=== PATIENT | male | born 1960 | race Caucasian/White ===

== ENCOUNTER → 2018-12-25 | Outpatient (CLI) | payer OTHER ==
[~2018-12-25] MED LIST: BICA50TA9 PO; XTAN40CA PO
--- NOTE | 2018-12-25 16:12 | REP ---
WHOLE BODY BONE SCAN: FOLLOWING THE INTRAVENOUS ADMINISTRATION OF 21.5 millicuries technetium 99M MDP, patient's whole body was imaged in the anterior and posterior projections. Additional oblique and lateral views were obtained. There is increased uptake in the region of the left maxillary sinus which may indicate sinusitis. No suspicious foci of uptake are seen in the axillary or appendicular skeleton. There is no compelling scintigraphic evidence of osseous metastases. Renal and bladder activity are seen. IMPRESSION: No compelling scintigraphic evidence of osseous metastases. Mild focal increased uptake in the region of the left maxillary sinus may indicate sinusitis. Electronically Signed by Hima Browne MD 12/26/2018 04:47 P
== END ==
LOC: M RAD 08:58
PROVIDERS: ATTEND Urology
DX: C61 Malignant neoplasm of prostate (principal)
CPT/HCPCS: 78306; A9503

== ENCOUNTER → 2018-12-31 | Outpatient (CLI) | payer OTHER ==
--- NOTE | 2019-01-02 08:21 | RADONC ---
RADIATION ONCOLOGY CONSULTATION NOTE DATE: 12/31/2018 CHART NUMBER: [id number] DIAGNOSIS: Prostate cancer. STAGE: IIIC, T4N0M0, PSA 400, Adamaris score 10 (5-5), grade group 5. CONSULTATION NOTE: Mr. Berg is a very pleasant 58-year-old white male with the diagnosis of extremely high risk and high-grade stage IIIC, T4N0M0, poorly differentiated Adamaris score 10 (5-5) adenocarcinoma of almost all needle biopsy specimens with a PSA level originally reported to be 400, who is presenting to us today for consideration of definitive external beam radiation therapy with IMRT/IGRT. HISTORY OF PRESENT ILLNESS: The patient was in his usual state of health and I do not at this time have all the records available to me. Apparently in October a PSA was undertaken and was said to be 400. The patient was started on antibiotics on antibiotics and on 11/18/2018 the PSA dropped to 351.38. On 12/16/2018 the patient underwent TUR biopsy and cystoscopy. It was reported that he had a prostate that had multiple necrotic looking polypoid tissue areas extending into the prostate lumen. Needle biopsy undertaken on 12/16/2018 showed almost all specimens were involved with [place] score 10 (5+5) adenocarcinoma. The right apex also showed perineural invasion. Some of the specimens showed replacement of normal tissue with adenocarcinoma involving 100% of the specimen. Other biopsies involved 90% and 80%. In summary, basically it appears that almost the entire prostate was replaced with extremely highly differentiated [place] score 10 adenocarcinoma. A bone scan was undertaken on 12/25/2018 and it showed no compelling evidence for osseous metastatic disease. A CT scan done 10/15/2018 did show a markedly enlarged prostate with indentation of the bladder base. No lymphadenopathy was definitively seen. On 12/10/2018 a repeat of the PSA was done and was 377.79. The patient has started hormonal treatments and is scheduled to be seen by Dr. Ravi on January 22 for an antiandrogen injection. He has not yet had placement of any fiducial markers. He is presenting to us to discuss external beam radiation therapy with IMRT/IGRT. The patient is also scheduled to see the medical oncologist Dr. Yoly Suarez next week on January 06. PAST MEDICAL HISTORY: The patient's past medical history is positive for urinary tract infections as well as a hand laceration. ALLERGIES: No known drug allergies. SOCIAL HISTORY: The patient quit smoking cigarettes in 1991. He had smoked one pack of cigarettes per day. He smokes four marijuana joints per day every day. He does not abuse alcohol. FAMILY HISTORY: The patient's family history is positive for a father with prostate cancer. Mother with non-Hodgkin's lymphoma as well as colon cancer. A sister with breast cancer and another sister with colon and liver cancers. REVIEW OF SYSTEMS: The patient's review of systems is noncontributory. He denies nausea, vomiting, fevers, chills, night sweats, diplopia, headaches, anxiety or depression, anorexia, weight loss, visual disturbances, chest pain, urinary or bowel difficulties, bone pain or neurological problems. PHYSICAL EXAMINATION: The patient is a well-developed, well-nourished male in no acute distress. HEENT exam is normocephalic, atraumatic. Extraocular movements are intact. There is no palpable cervical, supraclavicular, infraclavicular, axillary, or inguinal lymphadenopathy present. Lungs are clear to auscultation and percussion. Heart has a regular rate and rhythm. Abdomen is benign with no hepatosplenomegaly, masses, or tenderness. Rectal examination reveals a normal anal sphincter tone. His prostate is quite enlarged bilaterally and irregularly shaped. Skeletal examination reveals no tenderness to pressure or percussion of the bony skeleton. Extremities reveal no clubbing, cyanosis, or edema. Neurologic exam is grossly intact as is the remainder of the physical examination. MEDICAL NECESSITY: IMRT/IGRT is clinically indicated for the highly conformal dose planning required. The target volume is in close proximity to critical structures, such as the rectum, bladder, small bowel, and femoral heads. The volume of interest must be covered with narrow margins to adequately protect immediately adjacent structures. The plan requires interpretation of complex testing such as CT localization. As noted above, special planning (IMRT) and localizing (IGRT) is required and essential to maximally protect sensitive normal tissue structures which cannot be accomplished using conventional 3-dimensional planning. ASSESSMENT: I believe this patient is a candidate for external beam radiation therapy and I have so informed him. I have discussed with the patient in detail the potential benefits as well as possible acute and chronic sequelae of external beam radiation therapy. We discussed the logistics of treatment planning, simulation and subsequent fractionated daily radiation treatments. Clearly I believe this case is for local control. We are dealing with massive and extremely aggressive disease. Indeed almost all cores of his biopsy specimen were replaced with a [place] score 10 (5-5) adenocarcinoma. In addition, there was perineural invasion and according to Dr. Davidson Ravi's note there was no clear capsule, the tumor had to be scraped off the bladder. In addition, his PSA score is at 400 and has increased from the low after the antibiotics of 351 up to 377 in just a matter of 2 weeks. All of this indicates to me the high likelihood of metastatic disease. Even in light of this however, I believe it worth treating to obtain local control of what appears to be significant advanced disease. I have discussed the case with Dr. Ravi's office for placement of fiducial markers. Once the fiducial markers are placed we can schedule him for simulation and initiation of treatment planning for 2 weeks later. In the meantime, androgen deprivation therapy is underway and this will hopefully shrink down some of the size of our targeted prostate gland. I have also placed this patient on our list for discussion at our multidisciplinary tumor conference. The patient is scheduled to see medical oncology next week to see if they can benefit him in any way at this time. I look forward to their expert opinions and advice. This patient's tumors is quite undifferentiated and therefore I do not have a tremendous amount of navid in the efficacy in the success of androgen deprivation therapy. Thank you for allowing us to participate in the care of this very pleasant gentleman. If I could be of any further assistance please feel free to contact me at anytime. cc: MD Davidson Martinez, ROBLES
== END ==
LOC: M ONCR 12:47
PROVIDERS: ATTEND Radiology Radiation Oncology
DX: C61 Malignant neoplasm of prostate (principal)

== ENCOUNTER → 2019-01-20 | Outpatient (REF) | payer OTHER ==
[2019-01-20 12:33] LABS: BASO # 0.1 10^3/uL (0.0-0.2); BASO % 0.7 % (0.0-1.0); EOS # 0.3 10^3/uL (0.0-0.5); EOS % 4.3 % (0.0-3.0); HEMATOCRIT 45.4 % (42.0-52.0); HEMOGLOBIN 15.4 g/dl (13.5-17.5); LYMPH % 29.1 % (24.0-44.0); MEAN CORPUSCULAR HEMOGLOBIN 32.3 pg (27.0-33.0); MEAN CORPUSCULAR HGB CONC 33.9 g/dl (32.0-36.5); MEAN CORPUSCULAR VOLUME 95.2 fl (80.0-96.0); MONO # 0.5 10^3/uL (0.0-0.8); MONO % 6.9 % (0.0-5.0); NEUTROPHILS # 4.1 10^3/uL (1.5-8.5); NEUTROPHILS % 58.1 % (36.0-66.0); PLATELET COUNT, AUTOMATED 324 10^3/uL (150-450); RED BLOOD COUNT 4.77 10^6/uL (4.30-6.10)
[2019-01-20 13:08] LABS: ALT/SGPT 48 U/L (12-78); BILIRUBIN,TOTAL 0.6 MG/DL (0.2-1.0); BLOOD UREA NITROGEN 20 MG/DL (7-18); CALCIUM LEVEL 9.2 MG/DL (8.5-10.1); CARBON DIOXIDE LEVEL 26 MEQ/L (21-32); CHLORIDE LEVEL 106 MEQ/L (98-107); GLOMERULAR FILTRATION RATE > 60.0 (>56); GLUCOSE, FASTING 114 MG/DL (70-100); POTASSIUM SERUM 4.3 MEQ/L (3.5-5.1); SODIUM LEVEL 138 MEQ/L (136-145); TOTAL PROTEIN 7.3 GM/DL (6.4-8.2)
== END ==
LOC: M LABDRAWC 11:45
PROVIDERS: ATTEND Nurse Practitioner Family
DX: C61 Malignant neoplasm of prostate (principal)

== ENCOUNTER → 2019-02-05 | Outpatient (REF) | payer OTHER ==
[2019-02-05 11:37] LABS: BASO % 0.6 % (0.0-1.0); EOS # 0.3 10^3/uL (0.0-0.5); EOS % 4.6 % (0.0-3.0); HEMATOCRIT 42.7 % (42.0-52.0); HEMOGLOBIN 14.2 g/dl (13.5-17.5); LYMPH # 2.5 10^3/uL (1.5-5.0); MEAN CORPUSCULAR HEMOGLOBIN 31.1 pg (27.0-33.0); MEAN CORPUSCULAR HGB CONC 33.3 g/dl (32.0-36.5); MEAN CORPUSCULAR VOLUME 93.6 fl (80.0-96.0); MONO # 0.6 10^3/uL (0.0-0.8); MONO % 8.4 % (0.0-5.0); NEUTROPHILS # 3.3 10^3/uL (1.5-8.5); PLATELET COUNT, AUTOMATED 352 10^3/uL (150-450); RED BLOOD COUNT 4.56 10^6/uL (4.30-6.10); WHITE BLOOD COUNT 6.7 10^3/uL (4.0-10.0)
[2019-02-05 11:45] LABS: ALT/SGPT 29 U/L (12-78); BILIRUBIN,TOTAL 0.6 MG/DL (0.2-1.0); BLOOD UREA NITROGEN 21 MG/DL (7-18); CALCIUM LEVEL 9.3 MG/DL (8.5-10.1); CARBON DIOXIDE LEVEL 27 MEQ/L (21-32); CHLORIDE LEVEL 106 MEQ/L (98-107); CREATININE FOR GFR 0.97 MG/DL (0.70-1.30); GLOMERULAR FILTRATION RATE > 60.0 (>56); GLUCOSE, FASTING 109 MG/DL (70-100); POTASSIUM SERUM 4.2 MEQ/L (3.5-5.1); SODIUM LEVEL 139 MEQ/L (136-145); TOTAL PROTEIN 7.2 GM/DL (6.4-8.2)
== END ==
LOC: M LABDRWAD 11:23
PROVIDERS: ATTEND Nurse Practitioner Family
DX: C61 Malignant neoplasm of prostate (principal)

== ENCOUNTER 2019-03-05 12:44 | Outpatient (RCR) | payer OTHER ==
[2019-02-18 14:53] LABS: BASO % 0.5 % (0.0-1.0); EOS # 0.1 10^3/uL (0.0-0.5); HEMATOCRIT 41.5 % (42.0-52.0); HEMOGLOBIN 14.1 g/dl (13.5-17.5); LYMPH # 2.4 10^3/uL (1.5-5.0); LYMPH % 30.4 % (24.0-44.0); MEAN CORPUSCULAR HEMOGLOBIN 31.8 pg (27.0-33.0); MEAN CORPUSCULAR VOLUME 93.7 fl (80.0-96.0); MONO # 0.8 10^3/uL (0.0-0.8); MONO % 9.7 % (0.0-5.0); NEUTROPHILS # 4.5 10^3/uL (1.5-8.5); NEUTROPHILS % 57.8 % (36.0-66.0); PLATELET COUNT, AUTOMATED 349 10^3/uL (150-450); RED BLOOD COUNT 4.43 10^6/uL (4.30-6.10); WHITE BLOOD COUNT 7.7 10^3/uL (4.0-10.0)
--- NOTE | 2019-02-18 15:13 | RADONC ---
RADIATION ONCOLOGY SIMULATION NOTE DATE OF SERVICE: 02/18/2019 CHART NUMBER: [id number] Mr. Berg was taken to the CT scan for CT simulation of his prostate field. CT was accomplished without difficulty or discomfort. Radiation treatment planning is underway and radiation treatments will begin subsequently. An immobilization device was created and will be used throughout the course of treatment. It was created without difficulty or discomfort. I was physically present throughout the course of CT simulation.
--- NOTE | 2019-03-05 08:38 | RADONC ---
RADIATION ONCOLOGY PROGRESS NOTE DATE: 03/04/2019 CHART NUMBER: [id number] PROGRESS NOTE: Mr. Berg is presently at a dose of 540 cGy to his prostate is tolerating treatments quite well at this point with no complaints related to his radiation therapy. He is having no urinary or bowel difficulties and no bone pain. REVIEW OF SYSTEMS: The patient's review of systems is noncontributory. Denies nausea, vomiting, fevers, chills, night sweats, diplopia, headaches, anxiety or depression, anorexia, weight loss, visual disturbances, chest pain, urinary or bowel difficulties, bone pain, or neurological problems. PHYSICAL EXAMINATION: The patient's skin is in good condition with no evidence of radiation change present. There is no moist or dry desquamation. The remainder of the physical exam remains unchanged. Mr. Berg is tolerating treatments quite well and radiation will continue as scheduled.
== END 2019-03-08 ==
LOC: M ONCR 12:44
PROVIDERS: ATTEND Radiology Radiation Oncology
DX: C61 Malignant neoplasm of prostate (principal)

== ENCOUNTER → 2019-03-24 | Outpatient (REF) | payer OTHER ==
[2019-03-24 11:38] LABS: ALT/SGPT 32 U/L (12-78); BILIRUBIN,TOTAL 0.4 MG/DL (0.2-1.0); BLOOD UREA NITROGEN 18 MG/DL (7-18); CALCIUM LEVEL 9.3 MG/DL (8.5-10.1); CARBON DIOXIDE LEVEL 28 MEQ/L (21-32); CHLORIDE LEVEL 108 MEQ/L (98-107); CHOLESTEROL LEVEL 348 MG/DL (<200); CHOLESTEROL RISK RATIO 6.214 (<5); CREATININE FOR GFR 0.96 MG/DL (0.70-1.30); GLOMERULAR FILTRATION RATE > 60.0 (>56); GLUCOSE, FASTING 98 MG/DL (70-100); HDL CHOLESTEROL 56 MG/DL (>40); LDL CHOLESTEROL 249 MG/DL (<100); NON-HDL-C 292 MG/DL; POTASSIUM SERUM 5.7 MEQ/L (3.5-5.1); SODIUM LEVEL 141 MEQ/L (136-145); TOTAL PROTEIN 7.4 GM/DL (6.4-8.2); TRIGLYCERIDES LEVEL 217 MG/DL (<150)
== END ==
LOC: M SFHCCLAY 06:49
PROVIDERS: ATTEND Family Medicine
DX: Z13.220 Encounter for screening for lipoid disorders (principal); Z13.1 Encounter for screening for diabetes mellitus

== ENCOUNTER → 2019-04-08 | Outpatient (RCR) | payer OTHER ==
--- NOTE | 2019-03-11 15:22 | RADONC ---
RADIATION ONCOLOGY TREATMENT NOTE: DATE OF SERVICE: 03/11/2019 CHART NUMBER: [id number] Mr. Berg is a patient with prostate CA. He is getting treatment ADT and radiatio therapy. His next shot is scheduled in May of 2019. So far he has received a dose of 1260 cGy in 7 treatments. He has no complaints. No , GI problems. He is experiencing hot flashes with ADT. He is tolerating treatments very well without the unusual side effect and the treatment will continue as planned. MTDD
--- NOTE | 2019-03-17 13:16 | RADONC ---
RADIATION ONCOLOGY PROGRESS NOTE DATE: 03/17/2019 CHART NUMBER: [id number] Mr. Berg is presently a dose of 1980 cGy to his prostate and is tolerating treatments quite well at this point with no complaints related to his radiation therapy. He is having no urinary or bowel difficulties and no bone pain. The patient's review of systems is noncontributory. Denies nausea, vomiting, fevers, chills, night sweats, diplopia, headaches, anxiety or depression, anorexia, weight loss, visual disturbances, chest pain, urinary or bowel difficulties, bone pain, or neurological problems. PHYSICAL EXAMINATION: The patient's skin is in good condition with no evidence of radiation change present. There is no moist or dry desquamation. The remainder of his physical exam remains unchanged. Mr. Berg is tolerating treatments quite well and radiation will continue as scheduled.
--- NOTE | 2019-03-26 06:32 | RADONC ---
RADIATION ONCOLOGY PROGRESS NOTE DATE: 03/24/2019 CHART #: [id number] Mr. Berg is presently at a dose of 2880 cGy to his prostate and seminal vesicles and is tolerating treatments quite well at this point with no significant difficulties related to his radiation therapy. He is having no urinary or bowel problems and no bone pain. REVIEW OF SYSTEMS: The patient's review of systems is noncontributory. Denies nausea, vomiting, fevers, chills, night sweats, diplopia, headaches, anxiety or depression, anorexia, weight loss, visual disturbances, chest pain, urinary or bowel difficulties, bone pain, or neurological problems. PHYSICAL EXAMINATION: The patient's skin is in good condition with no evidence of moist or dry desquamation. The remainder of his physical exam remains unchanged. The patient is tolerating treatments quite well and radiation will continue as scheduled.
--- NOTE | 2019-04-04 08:47 | RADONC ---
RADIATION ONCOLOGY PROGRESS NOTE DATE: 03/31/2019 CHART #: [id number] Mr. Berg with a diagnosis of adenocarcinoma of the prostate, stage III C, T4, N0, M0, with a PSA greater than 20 and high-grade tumor. He is currently receiving local regional radiotherapy. His tolerance thus far is satisfactory. He is at a dose of 3780 cGy of a proposed 7920 cGy. He is tolerating his radiotherapy reasonably well, denying any nausea, vomiting, diarrhea, dysuria, hematuria or blood per rectum. His energy level is excellent and he is able to maintain most of his day-to-day activities without any alteration of his lifestyle. Skin irritation is denied. EXAMINATION FINDINGS: The skin within the irradiated volume shows neither erythema nor desquamation. Lymphatics: No palpable peripheral lymphadenopathy is appreciated. The remainder of the physical examination is unchanged. IMPRESSION: Tolerating therapy well. PLAN: Treatments to continue. MTDD
--- NOTE | 2019-04-07 13:24 | RADONC ---
RADIATION ONCOLOGY PROGRESS NOTE DATE: 04/07/2019 CLINICAL HISTORY [id number] Mr. Berg with a diagnosis of malignant neoplasm involving the prostate stage IIIC, T4N0M0, is currently receiving local regional radiotherapy. He is having no issues secondary to the radiotherapy, in fact he denies any nausea, vomiting, significant diarrhea, dysuria, hematuria or blood per rectum. He has achieved a dose of 4320 cGy of a proposed 4500 cGy and thereafter will be boosted for an additional dose. As stated he specifically denies any nausea, vomiting, diarrhea, dysuria, hematuria or blood per rectum. His energy level is excellent and he is able to maintain most day-to-day activities without any alteration of his lifestyle. Skin irritation is denied. EXAMINATION FINDINGS: The skin within the irradiated volume shows neither erythema nor desquamation. There is no palpable peripheral lymphadenopathy noted in the cervical, supraclavicular, axillary or inguinal lymph node chains. The remainder of the physical examination is unchanged. IMPRESSION: Tolerating therapy well. PLAN: Treatments to continue.
== END ==
LOC: M ONCR 03-10 12:37
PROVIDERS: ATTEND Radiology Radiation Oncology
DX: C61 Malignant neoplasm of prostate (principal)

== ENCOUNTER 2019-05-06 09:35 | Outpatient (RCR) | payer OTHER ==
--- NOTE | 2019-04-15 06:49 | RADONC ---
RADIATION ONCOLOGY PROGRESS NOTE DATE: 04/14/2019 CHART NUMBER: [id number] Mr. Berg is presently at a dose of 5040 cGy to his prostate and seminal vesicles and is tolerating treatments quite well at this point with no complaints related to his radiation therapy. He is having no urinary or bowel difficulties and no bone pain. REVIEW OF SYSTEMS: The patient's review of systems is noncontributory. He denies nausea, vomiting, fevers, chills, night sweats, diplopia, headaches, anxiety or depression, anorexia, weight loss, visual disturbances, chest pain, urinary or bowel difficulties, bone pain or neurological problems. PHYSICAL EXAMINATION The patient's skin is in good condition with no evidence of moist or dry desquamation. The remainder of his physical exam remains unchanged. Mr. Berg is tolerating treatments quite well and radiation will continue as scheduled.
--- NOTE | 2019-04-22 08:38 | RADONC ---
RADIATION ONCOLOGY PROGRESS NOTE DATE: 04/21/2019 CHART #: [id number] Mr. Berg at is presently at a dose of 5940 cGy to his prostate and is tolerating treatments quite well at this point with no complaints related to his radiation therapy. He is having no significant urinary or bowel difficulties and no bone pain. REVIEW OF SYSTEMS: The patient's review of systems is noncontributory. Denies nausea, vomiting, fevers, chills, night sweats, diplopia, headaches, anxiety or depression, anorexia, weight loss, visual disturbances, chest pain, urinary or bowel difficulties, bone pain, or neurological problems. PHYSICAL EXAMINATION: The patient's skin is in good condition with no evidence of moist or dry desquamation. The remainder of his physical exam remains unchanged. Mr. Berg is tolerating treatments quite well and radiation will continue as scheduled.
--- NOTE | 2019-04-28 11:43 | RADONC ---
RADIATION ONCOLOGY PROGRESS NOTE DATE: 04/28/2019 CHART NUMBER: [id number] Mr. Berg is presently at a dose of 6840 cGy to his prostate and is tolerating treatments quite well at this point with no significant difficulties related to his radiation therapy other than urinary frequency and some burning. The patient's review of systems is positive for urinary frequency but is otherwise noncontributory. He denies nausea, vomiting, fevers, chills, night sweats, diplopia, headaches, anxiety or depression, anorexia, weight loss, visual disturbances, chest pain, urinary or bowel difficulties, bone pain, or neurological problems. PHYSICAL EXAM: The patient's skin is in good condition with no evidence of radiation change present. There is no moist or dry desquamation. The remainder of his physical exam remains unchanged. Mr. Berg is tolerating treatments quite well and radiation will continue as scheduled.
--- NOTE | 2019-05-06 15:26 | RADONC ---
RADIATION ONCOLOGY PROGRESS NOTE DATE OF SERVICE: 05/05/2019 CHART NUMBER: [id number] Mr. Hernandez is presently at a dose of 7740 cGy to his prostate and is tolerating treatments quite well at this point with no complaints related to his radiation therapy. He is having no urinary or bowel difficulties and no bone pain. The patient's review of systems is noncontributory. Denies nausea, vomiting, fevers, chills, night sweats, diplopia, headaches, anxiety or depression, anorexia, weight loss, visual disturbances, chest pain, urinary or bowel difficulties, bone pain, or neurological problems. PHYSICAL EXAMINATION The patient's skin is in good condition with no evidence of moist or dry desquamation. The remainder of his physical exam remains unchanged. Mr. Hernandez is tolerating treatments quite well and radiation will continue as scheduled.
--- NOTE | 2019-05-07 11:17 | RADONC ---
RADIATION ONCOLOGY CONSULTATION NOTE DATE: 05/06/2019 CHART NUMBER: [id number] DIAGNOSIS: Prostate cancer. STAGE: III C, T4N0M0, PSA 400, Adamaris score 10 (5-5), grade group 5. CONSULTATION NOTE: Mr. Berg is a very pleasant 58-year-old white male with the diagnosis of extremely high risk and high-grade stage III C, T4N0M0, poorly differentiated [place] score 10 (5-5) adenocarcinoma of the prostate with almost all needle biopsy specimens positive with an original PSA level reported to be 400 who presented to us for consideration of definitive external beam radiation therapy with IMRT/IGRT. We treated the patient to his prostate for a total dose of 7920 cGy delivered in 44 fractions of 180 cGy each over 65 elapsed days from 02/27/2019 through 05/06/2019. The patient's prostate was treated on a linear accelerator utilizing a 6 MV photon beam via IMRT/IGRT. We initially treated the prostate, seminal vesicles and first echelon of lymph nodes to a total dose of 4500 cGy delivered in 25 fractions of 180 cGy each. We subsequently coned down to the prostate and seminal vesicles for an additional 900 cGy in 5 fractions of 180 cGy bringing the seminal vesicles to a total dose of 5400 cGy. We then boosted the prostate for an additional 2520 cGy in 14 fractions of 180 cGy bringing it to a total dose once again in 7920 cGy. Mr. Berg tolerated his treatments quite well and was able complete therapy as prescribed without interruption. I have scheduled the patient to see me again in 1 month for further followup. He will also continue to be followed by his other physicians as well. cc: MD Davidson Martinez, ROBLES
== END 2019-05-09 ==
LOC: M ONCR 09:35
PROVIDERS: ATTEND Radiology Radiation Oncology
DX: C61 Malignant neoplasm of prostate (principal)

== ENCOUNTER → 2019-06-02 | Outpatient (REF) | payer OTHER | LOC: M LABDRAWC 11:12 → M LAB REF 11:12 | PROVIDERS: ATTEND Radiology Radiation Oncology | DX: C61 Malignant neoplasm of prostate (principal) ==

== ENCOUNTER → 2019-06-04 | Outpatient (CLI) | payer OTHER ==
--- NOTE | 2019-06-05 10:35 | RADONC ---
RADIATION ONCOLOGY FOLLOWUP NOTE DATE: 06/04/2019 CHART #: [id number] DIAGNOSIS: Prostate cancer. STAGE: III C, T4N0M0, PSA 400, [place] score 10 (5-5) grade group 5. ECOG PERFORMANCE STATUS: 0. FOLLOWUP NOTE: Mr. Berg is a very pleasant 58-year-old white male with the diagnosis of extremely high risk and high-grade stage III C, T4N0M0, poorly differentiated [place] score 10 (5-5) adenocarcinoma of almost all needle biopsy specimens with a PSA level originally reported to be 400, who is presenting to us today for routine followup visit 1 month post completion of external beam radiation therapy. The patient presents today reporting that he is doing quite well with no complaints at this time related to his radiation therapy or disease. He is having no urinary or bowel difficulties and no bone pain. REVIEW OF SYSTEMS: The patient's review of systems is noncontributory. Denies nausea, vomiting, fevers, chills, night sweats, diplopia, headaches, anxiety or depression, anorexia, weight loss, visual disturbances, chest pain, urinary or bowel difficulties, bone pain, or neurological problems. PHYSICAL EXAMINATION: The patient is a well-developed, well-nourished male in no acute distress. HEENT exam is normocephalic, atraumatic. Extraocular movements are intact. There is no palpable cervical, supraclavicular, infraclavicular, axillary, or inguinal lymphadenopathy present. Lungs are clear to auscultation and percussion. Heart has a regular rate and rhythm. Abdomen is benign with no hepatosplenomegaly, masses, or tenderness. Rectal examination reveals a normal anal sphincter tone. His prostate is smooth with no evidence of nodularity. Skeletal examination reveals no tenderness to pressure or percussion of the bony skeleton. Extremities reveal no clubbing, cyanosis, or edema. Neurologic exam is grossly intact, as is the remainder of the physical examination. ASSESSMENT: The patient is clinically doing well at this point. He is seeing Dr. Ravi his urologist routinely for hormonal treatments and PSA studies. He is also continuing to be followed by his other physicians. In light of this and my impending senior care, I am discharging this patient from my followup at this point understanding that he is in good care with his urologist managing this issue. cc: MD Davidson Martinez, ROBLES
== END ==
LOC: M ONCR 09:22
PROVIDERS: ATTEND Radiology Radiation Oncology
DX: C61 Malignant neoplasm of prostate (principal)

== ENCOUNTER → 2019-07-02 | Outpatient (REF) | payer OTHER | LOC: M LABDRAWC 15:58 | PROVIDERS: ATTEND Urology | DX: C61 Malignant neoplasm of prostate (principal) ==

== ENCOUNTER → 2020-01-06 | Outpatient (REF) | payer OTHER ==
[2020-01-06 19:00] LABS: HEMOGLOBIN A1c 5.4 %
[2020-01-06 19:15] LABS: BLOOD UREA NITROGEN 13 MG/DL (7-18); CALCIUM LEVEL 9.3 MG/DL (8.8-10.2); CARBON DIOXIDE LEVEL 27 MEQ/L (21-32); CHLORIDE LEVEL 106 MEQ/L (98-107); CHOLESTEROL LEVEL 218 MG/DL (<200); CHOLESTEROL RISK RATIO 4.739 (<5); CREATININE FOR GFR 0.85 MG/DL (0.70-1.30); GLOMERULAR FILTRATION RATE > 60.0 (>49); GLUCOSE, FASTING 93 MG/DL (70-100); HDL CHOLESTEROL 46 MG/DL (>40); LDL CHOLESTEROL 133 MG/DL (<100); NON-HDL-C 172 MG/DL; POTASSIUM SERUM 4.3 MEQ/L (3.5-5.1); SODIUM LEVEL 139 MEQ/L (136-145); TRIGLYCERIDES LEVEL 194 MG/DL (<150)
== END ==
LOC: M SFHCCLAY 16:09
PROVIDERS: ATTEND Family Medicine
DX: I11.9 Hypertensive heart disease without heart failure (principal); Z13.1 Encounter for screening for diabetes mellitus; E78.49 Other hyperlipidemia

== ENCOUNTER → 2020-01-06 | Outpatient (REF) | payer OTHER | LOC: M LABDRAWC 16:08 | PROVIDERS: ATTEND Urology | DX: Z12.5 Encounter for screening for malignant neoplasm of prostate (principal) ==

== ENCOUNTER → 2020-07-07 | Outpatient (REF) | payer OTHER ==
[2020-07-07 12:02] LABS: CARBON DIOXIDE LEVEL 27 MEQ/L (21-32); CHLORIDE LEVEL 105 MEQ/L (98-107); GLOMERULAR FILTRATION RATE > 60.0 (>49); POTASSIUM SERUM 4.5 MEQ/L (3.5-5.1); PROSTATIC SPECIFIC AG MONITOR < 0.01 NG/ML (< 4.00); SODIUM LEVEL 138 MEQ/L (136-145)
== END ==
LOC: M LABDRAWC 10:59
PROVIDERS: ATTEND Urology
DX: R31.9 Hematuria, unspecified (principal); C61 Malignant neoplasm of prostate; R39.12 Poor urinary stream; R33.9 Retention of urine, unspecified

== ENCOUNTER → 2020-10-05 | Outpatient (REF) | payer OTHER | LOC: M SFHCCLAY 11:15 | PROVIDERS: ATTEND Family Medicine | DX: S30.861A Insect bite (nonvenomous) of abdominal wall, initial encounter (principal); W57.XXXA Bitten or stung by nonvenomous insect and other nonvenomous arthropods, initial encounter; M79.10 Myalgia, unspecified site ==

== ENCOUNTER → 2021-02-23 | Outpatient (REF) | payer OTHER | LOC: M LABDRAWC 15:44 | PROVIDERS: ATTEND Urology | DX: C61 Malignant neoplasm of prostate (principal) ==

== ENCOUNTER → 2021-03-01 | Outpatient (REF) | payer OTHER ==
[2021-03-01 11:56] LABS: BLOOD UREA NITROGEN 21 MG/DL (7-18); CALCIUM LEVEL 9.8 MG/DL (8.8-10.2); CARBON DIOXIDE LEVEL 28 MEQ/L (21-32); CHLORIDE LEVEL 107 MEQ/L (98-107); CHOLESTEROL LEVEL 280 MG/DL (<200); CREATININE FOR GFR 0.95 MG/DL (0.70-1.30); GLOMERULAR FILTRATION RATE > 60.0 (>49); GLUCOSE, FASTING 103 MG/DL (70-100); HDL CHOLESTEROL 50 MG/DL (>40); LDL CHOLESTEROL 207 MG/DL (<100); NON-HDL-C 230 MG/DL; SODIUM LEVEL 139 MEQ/L (136-145); TRIGLYCERIDES LEVEL 116 MG/DL (<150)
== END ==
LOC: M SFHCCLAY 07:04
PROVIDERS: ATTEND Family Medicine
DX: Z00.00 Encounter for general adult medical examination without abnormal findings (principal); E78.00 Pure hypercholesterolemia, unspecified; I11.9 Hypertensive heart disease without heart failure

== ENCOUNTER → 2021-08-31 | Outpatient (REF) | payer OTHER | LOC: M LABDRAWC 11:03 | PROVIDERS: ATTEND Urology | DX: C61 Malignant neoplasm of prostate (principal) ==

== ENCOUNTER → 2021-08-31 | Outpatient (REF) | payer OTHER ==
[2021-08-31 12:07] LABS: BLOOD UREA NITROGEN 19 MG/DL (7-18); CALCIUM LEVEL 9.8 MG/DL (8.8-10.2); CARBON DIOXIDE LEVEL 27 MEQ/L (21-32); CHLORIDE LEVEL 108 MEQ/L (98-107); CHOLESTEROL LEVEL 303 MG/DL (<200); CHOLESTEROL RISK RATIO 7.046 (<5); CREATININE FOR GFR 0.94 MG/DL (0.70-1.30); GLOMERULAR FILTRATION RATE > 60.0 (>49); GLUCOSE, FASTING 110 MG/DL (70-100); HDL CHOLESTEROL 43 MG/DL (>40); LDL CHOLESTEROL 232 MG/DL (<100); NON-HDL-C 260 MG/DL; POTASSIUM SERUM 4.9 MEQ/L (3.5-5.1); SODIUM LEVEL 141 MEQ/L (136-145); TRIGLYCERIDES LEVEL 142 MG/DL (<150)
== END ==
LOC: M SFHCCLAY 07:14
PROVIDERS: ATTEND Family Medicine
DX: E78.00 Pure hypercholesterolemia, unspecified (principal); I11.9 Hypertensive heart disease without heart failure

== ENCOUNTER → 2022-02-23 | Outpatient (CLI) | payer OTHER | LOC: M WHC 11:21 | PROVIDERS: ATTEND Urology | DX: M81.8 Other osteoporosis without current pathological fracture (principal) ==

== ENCOUNTER → 2022-03-13 | Outpatient (REF) | payer OTHER | LOC: M LABDRAWC 11:17 | PROVIDERS: ATTEND Urology | DX: C61 Malignant neoplasm of prostate (principal) ==

== ENCOUNTER → 2022-07-13 | Outpatient (REF) | payer OTHER ==
[2022-07-13 18:24] LABS: HEMOGLOBIN A1c 5.5 % (4.0-6.0)
[2022-07-13 18:53] LABS: ALBUMIN 3.7 G/DL (3.2-5.2); ALKALINE PHOSPHATASE 80 U/L (46-116); ALT/SGPT 20 U/L (7.0-40); AST/SGOT 25 U/L (<34); BILIRUBIN,TOTAL 0.4 MG/DL (0.3-1.2); BLOOD UREA NITROGEN 13 MG/DL (9-23); CARBON DIOXIDE LEVEL 27 MMOL/L (20-31); CHLORIDE LEVEL 105 MMOL/L (98-107); CHOLESTEROL LEVEL 226 MG/DL (<200); CREATININE FOR GFR 0.83 MG/DL (0.70-1.30); GLOMERULAR FILTRATION RATE > 60.0 (>49); GLUCOSE, FASTING 97 MG/DL (74-106); HDL CHOLESTEROL 49.1 MG/DL (>40); LDL CHOLESTEROL 149.9 MG/DL (<100); NON-HDL-C 176.9 MG/DL; POTASSIUM SERUM 5.1 MMOL/L (3.5-5.1); SODIUM LEVEL 138 MMOL/L (136-145); TOTAL PROTEIN 6.7 G/DL (5.7-8.2); TRIGLYCERIDES LEVEL 135 MG/DL (<150)
== END ==
LOC: M SFHCCLAY 10:12
PROVIDERS: ATTEND Nurse Practitioner Family
DX: E78.00 Pure hypercholesterolemia, unspecified (principal); I10 Essential (primary) hypertension; R73.09 Other abnormal glucose

== ENCOUNTER → 2022-07-27 | Outpatient (REF) | payer OTHER ==
[2022-07-27 17:46] LABS: BLOOD UREA NITROGEN 18 MG/DL (9-23); CALCIUM LEVEL 9.7 MG/DL (8.3-10.6); CARBON DIOXIDE LEVEL 28 MMOL/L (20-31); CHLORIDE LEVEL 100 MMOL/L (98-107); CREATININE FOR GFR 0.85 MG/DL (0.70-1.30); GLOMERULAR FILTRATION RATE > 60.0 (>49); GLUCOSE, FASTING 94 MG/DL (74-106); POTASSIUM SERUM 4.2 MMOL/L (3.5-5.1); SODIUM LEVEL 137 MMOL/L (136-145)
== END ==
LOC: M SFHCCLAY 11:21
PROVIDERS: ATTEND Nurse Practitioner Family
DX: I10 Essential (primary) hypertension (principal)

== ENCOUNTER → 2022-10-25 | Outpatient (REF) | payer OTHER ==
[2022-10-25 17:55] LABS: BLOOD UREA NITROGEN 17 MG/DL (9-23); CALCIUM LEVEL 9.4 MG/DL (8.3-10.6); CARBON DIOXIDE LEVEL 27 MMOL/L (20-31); CHLORIDE LEVEL 102 MMOL/L (98-107); CREATININE FOR GFR 0.78 MG/DL (0.70-1.30); GLOMERULAR FILTRATION RATE > 60.0 (>49); GLUCOSE, FASTING 98 MG/DL (74-106); POTASSIUM SERUM 4.1 MMOL/L (3.5-5.1); SODIUM LEVEL 137 MMOL/L (136-145)
== END ==
LOC: M SFHCCLAY 09:41
PROVIDERS: ATTEND Nurse Practitioner Family
DX: I10 Essential (primary) hypertension (principal)

== ENCOUNTER → 2022-10-25 | Outpatient (REF) | payer OTHER ==
[2022-10-25 18:41] LABS: PROSTATIC SPECIFIC AG MONITOR 0.04 NG/ML (< 4.00)
== END ==
LOC: M LABDRAWC 17:39
PROVIDERS: ATTEND Urology
DX: C61 Malignant neoplasm of prostate (principal)

== ENCOUNTER → 2023-01-16 | Outpatient (CLI) | payer OTHER ==
[~2023-01-16] MED LIST changes: +ISOVUE-370 76% 100ML VIAL As Ordered ONE
== END ==
LOC: M RAD 10:03
PROVIDERS: ATTEND Urology
DX: C61 Malignant neoplasm of prostate (principal)
CPT/HCPCS: 74176; 78306; A9503; Q9967

== ENCOUNTER → 2023-02-09 | Outpatient (REF) | payer OTHER ==
[~2023-02-09] MED LIST changes: -ISOVUE-370 76% 100ML VIAL As Ordered ONE
== END ==
LOC: M LABDRAWC 11:19
PROVIDERS: ATTEND Urology
DX: C61 Malignant neoplasm of prostate (principal)

== ENCOUNTER → 2023-05-15 | Outpatient (REF) | payer OTHER ==
[2023-05-15 14:33] LABS: PROSTATIC SPECIFIC AG MONITOR 0.04 NG/ML (< 4.00)
== END ==
LOC: M LABDRAWC 13:14
PROVIDERS: ATTEND Urology
DX: C61 Malignant neoplasm of prostate (principal)

== ENCOUNTER → 2023-06-13 | Outpatient (REF) | payer OTHER ==
[2023-06-13 12:57] LABS: HEMOGLOBIN A1c 5.6 % (4.0-6.0)
[2023-06-13 13:00] LABS: ALBUMIN 4.3 G/DL (3.2-5.2); ALKALINE PHOSPHATASE 74 U/L (46-116); ALT/SGPT 31 U/L (7.0-40); AST/SGOT 31 U/L (<34); BILIRUBIN,TOTAL 0.5 MG/DL (0.3-1.2); BLOOD UREA NITROGEN 16 MG/DL (9-23); CALCIUM LEVEL 9.1 MG/DL (8.3-10.6); CARBON DIOXIDE LEVEL 26 MMOL/L (20-31); CHLORIDE LEVEL 107 MMOL/L (98-107); CHOLESTEROL LEVEL 276 MG/DL (<200); CHOLESTEROL RISK RATIO 6.06 (<5); CREATININE FOR GFR 0.81 MG/DL (0.70-1.30); GLOMERULAR FILTRATION RATE > 60.0 (>49); GLUCOSE, FASTING 95 MG/DL (74-106); HDL CHOLESTEROL 45.5 MG/DL (>40); LDL CHOLESTEROL 204.9 MG/DL (<100); NON-HDL-C 230.5 MG/DL; POTASSIUM SERUM 4.3 MMOL/L (3.5-5.1); SODIUM LEVEL 138 MMOL/L (136-145); TOTAL PROTEIN 7.1 G/DL (5.7-8.2); TRIGLYCERIDES LEVEL 128 MG/DL (<150)
== END ==
LOC: M SFHCCLAY 08:45
PROVIDERS: ATTEND Nurse Practitioner Family
DX: E78.00 Pure hypercholesterolemia, unspecified (principal); K21.9 Gastro-esophageal reflux disease without esophagitis; I10 Essential (primary) hypertension; R73.09 Other abnormal glucose; Z85.46 Personal history of malignant neoplasm of prostate

== ENCOUNTER → 2023-11-01 | Outpatient (REF) | payer OTHER ==
[~2023-11-01] MED LIST changes: +BICA50TA4 PO; -BICA50TA9 PO
[2023-11-01 12:30] LABS: ALBUMIN 4.2 G/DL (3.2-5.2); ALKALINE PHOSPHATASE 78 U/L (46-116); ALT/SGPT 30 U/L (7.0-40); AST/SGOT 27 U/L (<34); BILIRUBIN,TOTAL 0.9 MG/DL (0.3-1.2); BLOOD UREA NITROGEN 16 MG/DL (9-23); CARBON DIOXIDE LEVEL 26 MMOL/L (20-31); CHLORIDE LEVEL 109 MMOL/L (98-107); CHOLESTEROL LEVEL 225 MG/DL (<200); CHOLESTEROL RISK RATIO 5.63 (<5); CREATININE FOR GFR 0.95 MG/DL (0.70-1.30); GLOMERULAR FILTRATION RATE > 60.0 (>49); GLUCOSE, FASTING 99 MG/DL (74-106); HDL CHOLESTEROL 39.9 MG/DL (>40); LDL CHOLESTEROL 161.9 MG/DL (<100); NON-HDL-C 185.1 MG/DL; POTASSIUM SERUM 3.8 MMOL/L (3.5-5.1); SODIUM LEVEL 141 MMOL/L (136-145); TOTAL PROTEIN 6.9 G/DL (5.7-8.2); TRIGLYCERIDES LEVEL 116 MG/DL (<150)
[2023-11-01 12:35] LABS: HEMOGLOBIN A1c 5.6 % (4.0-6.0)
== END ==
LOC: M SFHCCLAY 07:06
PROVIDERS: ATTEND Nurse Practitioner Family
DX: K21.9 Gastro-esophageal reflux disease without esophagitis (principal); E78.00 Pure hypercholesterolemia, unspecified; I10 Essential (primary) hypertension; R73.09 Other abnormal glucose; Z85.46 Personal history of malignant neoplasm of prostate

== ENCOUNTER → 2023-11-01 | Outpatient (REF) | payer OTHER | LOC: M LABDRAWC 11:05 | PROVIDERS: ATTEND Urology | DX: C61 Malignant neoplasm of prostate (principal) ==

== ENCOUNTER → 2024-05-22 | Outpatient (REF) | payer OTHER ==
[2024-05-22 12:42] LABS: PROSTATIC SPECIFIC AG MONITOR 0.07 NG/ML (< 4.00)
== END ==
LOC: M LABDRAWC 11:21
PROVIDERS: ATTEND Urology
DX: C61 Malignant neoplasm of prostate (principal)

== ENCOUNTER → 2024-06-06 | Outpatient (REF) | payer OTHER ==
[2024-06-06 12:41] LABS: ALKALINE PHOSPHATASE 81 U/L (40-129); ALT/SGPT 59 U/L (7.0-40); AST/SGOT 48 U/L (<34); BILIRUBIN,TOTAL 0.7 MG/DL (0.3-1.2); BLOOD UREA NITROGEN 17 MG/DL (9-23); CALCIUM LEVEL 9.5 MG/DL (8.3-10.6); CARBON DIOXIDE LEVEL 27 MMOL/L (20-31); CHLORIDE LEVEL 108 MMOL/L (98-107); CHOLESTEROL LEVEL 334 MG/DL (<200); CHOLESTEROL RISK RATIO 7.27 (<5); CREATININE FOR GFR 0.92 MG/DL (0.70-1.30); GLOMERULAR FILTRATION RATE > 60.0 (>49); GLUCOSE, FASTING 92 MG/DL (74-106); HDL CHOLESTEROL 45.9 MG/DL (>40); LDL CHOLESTEROL 256.7 MG/DL (<100); NON-HDL-C 288.1 MG/DL; POTASSIUM SERUM 4.5 MMOL/L (3.5-5.1); SODIUM LEVEL 141 MMOL/L (136-145); TOTAL PROTEIN 7.4 G/DL (5.7-8.2); TRIGLYCERIDES LEVEL 157 MG/DL (<150)
[2024-06-06 12:54] LABS: HEMOGLOBIN A1c 5.6 % (4.0-6.0)
== END ==
LOC: M SFHCCLAY 06:48
PROVIDERS: ATTEND Nurse Practitioner Family
DX: K21.9 Gastro-esophageal reflux disease without esophagitis (principal); E78.00 Pure hypercholesterolemia, unspecified; I10 Essential (primary) hypertension; R73.09 Other abnormal glucose; Z85.46 Personal history of malignant neoplasm of prostate

== ENCOUNTER → 2024-12-04 | Outpatient (REF) | payer OTHER | LOC: M LABDRAWC 12:02 | PROVIDERS: ATTEND Physician Assistant | DX: Z85.46 Personal history of malignant neoplasm of prostate (principal) ==